=== PATIENT | male | born 1990 | race Caucasian/White ===

== ENCOUNTER 2023-10-31 12:50 | Outpatient (CLI) | payer OTHER, SELFPAY ==
--- NOTE | 2023-10-31 14:30 | NEURO_ITS ---
Impression: # Complains of numbness of hands/shoulders. Non-diabetic. # No Carpal Tunnel Syndrome. # No ulnar neuropathy. # Normal needle/EMG. # Clinical correlation recommended. Nerve Conduction Studies Anti Sensory Summary Table Stim Site NR Peak (ms) P-T Amp (?V) Site1 Site2 Delta-P (ms) Dist (cm) Umair (m/s) Left Median Anti Sensory (2-3nd Digit) Wrist 2.7 48.7 Wrist 2-3nd Digit 2.7 14.0 52 Wrist 2.8 47.7 Wrist 2-3nd Digit 2.7 14.0 52 Right Median Anti Sensory (2-3nd Digit) Wrist 2.8 62.6 Wrist 2-3nd Digit 2.8 14.0 50 Wrist 2.9 61.3 Wrist 2-3nd Digit 2.8 14.0 50 Left Radial Anti Sensory (Base 1st Digit) Wrist 2.1 36.2 Wrist Base 1st Digit 2.1 0.0 Right Radial Anti Sensory (Base 1st Digit) Wrist 2.3 30.3 Wrist Base 1st Digit 2.3 0.0 Left Ulnar Anti Sensory (5th Digit) Wrist 2.6 32.2 Wrist 5th Digit 2.6 14.0 54 Right Ulnar Anti Sensory (5th Digit) Wrist 2.5 71.9 Wrist 5th Digit 2.5 14.0 56 Motor Summary Table Stim Site NR Onset (ms) O-P Amp (mV) Site1 Site2 Delta-0 (ms) Dist (cm) Umair (m/s) Left Median Motor (Abd Poll Brev) Wrist 2.7 4.4 Elbow Wrist 5.2 32.0 62 Elbow 7.9 7.4 Right Median Motor (Abd Poll Brev) Wrist 3.1 2.6 Elbow Wrist 4.8 30.0 62 Elbow 7.9 4.6 Left Ulnar Motor (Abd Dig Minimi) Wrist 2.6 5.6 A Elbow Wrist 5.3 33.0 62 A Elbow 7.9 5.0 Right Ulnar Motor (Abd Dig Minimi) Wrist 2.4 7.9 A Elbow Wrist 5.3 32.0 60 A Elbow 7.7 7.3 F Wave Studies NR F-Lat (ms) L-R F-Lat (ms) Left Median (Mrkrs) (Abd Poll Brev) 27.78 0.57 Right Median (Mrkrs) (Abd Poll Brev) 27.21 0.57 Left Ulnar (Mrkrs) (Abd Dig Min) 27.39 0.25 Right Ulnar (Mrkrs) (Abd Dig Min) 27.63 0.25 EMG Side Muscle Nerve Root Ins Act Fibs Amp Dur Recrt Comment Right 1stDorInt Ulnar C8-T1 Nml Nml Nml Nml Nml Right Ext Indicis Radial (Post Int) C7-8 Nml Nml Nml Nml Nml Right Ext Digitorum Radial (Post Int) C7-8 Nml Nml Nml Nml Nml Right BrachioRad Radial C5-6 Nml Nml Nml Nml Nml Right PronatorTeres Median C6-7 Nml Nml Nml Nml Nml Right Abd Poll Brev Median C8-T1 Nml Nml Nml Nml Nml Right ABD Dig Min Ulnar C8-T1 Nml Nml Nml Nml Nml Left 1stDorInt Ulnar C8-T1 Nml Nml Nml Nml Nml Left Ext Indicis Radial (Post Int) C7-8 Nml Nml Nml Nml Nml Left Ext Digitorum Radial (Post Int) C7-8 Nml Nml Nml Nml Nml Left BrachioRad Radial C5-6 Nml Nml Nml Nml Nml Left PronatorTeres Median C6-7 Nml Nml Nml Nml Nml Left Abd Poll Brev Median C8-T1 Nml Nml Nml Nml Nml Left ABD Dig Min Ulnar C8-T1 Nml Nml Nml Nml Nml Right Biceps Musculocut C5-6 Nml Nml Nml Nml Nml Right Triceps Radial C6-7-8 Nml Nml Nml Nml Nml Right Deltoid Axillary C5-6 Nml Nml Nml Nml Nml Left Biceps Musculocut C5-6 Nml Nml Nml Nml Nml Left Triceps Radial C6-7-8 Nml Nml Nml Nml Nml Left Deltoid Axillary C5-6 Nml Nml Nml Nml Nml MTDD
== END 2023-10-31 12:51 | disposition home or self-care (01) ==
PROVIDERS: PCP Internal Medicine; Visit Provider Clinical Nurse Specialist
DX: R20.0 Anesthesia of skin (principal); R20.2 Paresthesia of skin
CPT/HCPCS: 95886; 95911

== ENCOUNTER 2023-12-26 15:00 | Outpatient (RCR) | payer OTHER, SELFPAY ==
--- NOTE | 2023-10-19 16:07 | OTOPEVAL1 ---
Assessment and note entered by Rolo Stewart, RYAN/Pilo, CHT Evaluation Information Assessment Status Evaluation Diagnosis Anesthesia of skin, Paresthesia of skin Subjective Information Patient reports experiencing bilateral shoulder pain and bilateral pinky tingling. States he experiences sensitivity when pushing through his palms. He reports right side is more severe than the left. He is right handed. 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 Reports no injury leading up to this. Reports no increase in symptoms at night. Reported Pain Level Pain Score 1: Self Report Assessment OT Clinical Summary Patient referred to OT with bilateral shoulder pain and bilateral small finger paresthesia. He presents with gross UE weakness, postural deviations, and reduced scapulothoracic and glenohumeral mobility. It appears he is experiencing proximal compression of the brachial plexus causing distal symptoms. Skilled OT indicated for postural exercise, gross strengthening, workstation ergonomics education to facilitate improved body mechanics and strength and reduce pain and nerve compression. Plan of Care Interventions Therapeutic Exercise,Manual Therapy,Neuro Re- education,Therapeutic Activities,Hot Pack/Cold Pack OT Services Indicated Yes Treatment Frequency and 1x/week for 5 visits Duration These treatments will address the objective and functional deficits as defined above. The patient will be advanced safely and appropriately in order for the patient to progress towards his/her prior level of function. Additional exercises will be introduced and as well as a comprehensive home exercise program upon discharge, if needed, ?to ensure carryover of functional gains achieved in the clinic. This treatment plan has been reviewed and agreement upon by the patient.
--- NOTE | 2023-10-19 16:07 | OPREHPOC ---
Outpatient Therapy Plan of Care This is a Multidisciplinary Plan of Care that may contain components documented by all disciplines (PT, OT, and ST.) OT Problem 1 OT Problem #1 Knowledge Deficit OT Goal 1 Goal 1. Patient to be independent with instructed materials. Target Visit 6 OT Problem 2 OT Problem #2 Impaired Balance OT Goal 1 Goal 1. Patient to report 0/10 shoulder pain bilaterally. Target Visit 6 OT Problem 3 OT Problem #3 Impaired Strength OT Goal 1 Goal 1. Patient to demonstrate improved functional posture as demonstrated by level shoulders when in a seated position. 2. Patient to demonstrate improved functional strength in bilateral shoulders to 4+/5. 3. Patient to improve periscapular muscle strength to 4+/5. Target Visit 6
--- NOTE | 2023-11-21 16:00 | OTOPPROG ---
Assessment and note entered by Rolo Stewart, RYAN/Pilo, ALTONT OT Progress Update 11/21/23 Assessment Status Progress Diagnosis Anesthesia of skin, Paresthesia of skin Subjective Information Patient has been compliant with strengthening and postural exercises. He reports experiencing no shoulder pain in the last week. Reports the hand tingling is very infrequent now. Reports he experienced 1 instance of pinky tingling this week when he was using a scraping tool to remove tape from a surface. At this time he reports the main issue is pain through the middle of his wrist now and some jolts of numbness through the carpal tunnel area. He continues to experience sensitivity when pushing through his palms. Assessment OT Clinical Summary Patient referred to OT with bilateral shoulder pain and bilateral hand paresthesia. He has made excellent progress with postural corrections and proximal strengthening. He no longer is experiencing tingling in his small fingers. He continues to report some residual wrist pain and upon further assessment he has a positive carpal compression and positive Phalen's on bilateral wrists indicative of carpal tunnel syndrome. Today he was instructed in purchasing bilateral wrist immobilizers to wear at night, nerve and tendon glide HEP, and instructed in contrast baths. Continued follow up indicated to continue to treat symptoms of bilateral carpal tunnel syndrome via modalities, manual therapy, therapeutic exercise, and HEP instruction and progression to reduce median nerve compression through the carpal tunnel . Plan of Care Interventions Therapeutic Exercise,Manual Therapy,Neuro Re- education,Therapeutic Activities,Hot Pack/Cold Pack,Check Out for Orthotic/Pr,Ultrasound,Paraffin OT Services Indicated Yes Treatment Frequency and 1x/week for 6 visits Duration These treatments will address the objective and functional deficits as defined above. The patient will be advanced safely and appropriately in order for the patient to progress towards his/her prior level of function. Additional exercises will be introduced and as well as a comprehensive home exercise program upon discharge, if needed, ?to ensure carryover of functional gains achieved in the clinic. This treatment plan has been reviewed and agreement upon by the patient.
--- NOTE | 2023-12-15 15:24 | PCOTNOTE ---
ADDENDUM NOTE DECEMBER 06 at 15:00 LATE ENTRY EDIT: Paraffin L hand and Paraffin R hand 135 degrees temperature for paraffin 5 layers Comment : decrease nerve compression, pain management Duration of 10 minutes for paraffin Ultrasound L wrist and Ultrasound R wrist Ultrasound Gel used Pulsed 20% intensity W/CM 1 8 minutes duration each side (16 minutes total) Comment: decrease pain, decrease nerve compression
--- NOTE | 2023-12-26 15:37 | OTOPDC ---
Assessment and note entered by Rolo Stewart, KIMBERLYR/Pilo, CHT OT Discharge Summary 12/26/23 Diagnosis Anesthesia of skin, Paresthesia of skin Subjective Information Patient's therapy has been focusing distally this past month, treating signs and symptoms of carpal tunnel syndrome. He is compliant with night splints. He reports his symptoms are decreasing, but that he continues to experience intermittent jolts of pain through the palms. Having less tenderness when weight bearing through the palms. He reports his right hand no longer experiences pain or numbness. Symptoms mildly persist on the left hand/wrist. Points to the ulnar side of the wrist. Reported Pain Level Pain Score 0: Self Report Additional Pain Score Comments Patient reports no pain at rest. Reports intermittent 2/10 volar wrist pain on the left. No issues on the right. Assessment OT Clinical Summary Everardo has participated in 10 weeks of therapy for bilateral shoulder pain and bilateral hand tingling. Therapy has focused a lot on postural education, strengthening, and body mechanics. For his distal symptoms, he has also been completing nerve glides, tendon glides, and hand strengthening. He has made excellent progress with therapy, no longer experiencing shoulder pain. He continues to have minimal and inconsistent left wrist pain, pointing to Guyon's canal/pisiform bone. 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 This appears to be exacerbating the pain ins the area as there are no proximal points where the ulnar nerve is irritated. Reviewed HEP today and he demonstrates excellent understanding. Recommending he continue to complete his HEP, continue strengthening, and continue his postural work for optimal results. He verbalizes excellent understanding. D/C OT with goals met. Plan of Care OT Services Indicated No
== END 2023-12-26 16:04 | disposition home or self-care (01) ==
LOC: ANHGOSHOT 15:00
PROVIDERS: PCP Internal Medicine; Visit Provider Clinical Nurse Specialist
DX: R20.0 Anesthesia of skin (principal); R20.2 Paresthesia of skin
CPT/HCPCS: 97018; 97035; 97110; 97166; 97530

== ENCOUNTER 2024-04-12 09:44 | Outpatient (CLI) | payer OTHER, SELFPAY ==
--- NOTE | ~2024-04-12 | XR_ITS ---
EXAMINATION: [id number] DATE: 04/12/2024 10:00 INDICATION: Neck pain. TECHNIQUE: 3 views of cervical spine were obtained. COMPARISON: None. FINDINGS: There is 15 degrees levoscoliosis of cervicothoracic spine. Vertebral body heights and inte rvertebral disc heights are normal. There is multilevel mild facet joint osteoarthritis. No central c anal stenosis or prevertebral soft tissue swelling. IMPRESSION: 1. Mild cervical facet joint osteoarthritis. 2. Cervicothoracic levoscoliosis. Reviewed, dictated and finalized at location A.
== END 2024-04-12 09:45 | disposition home or self-care (01) ==
PROVIDERS: PCP Internal Medicine; Visit Provider Clinical Nurse Specialist
DX: M50.30 Other cervical disc degeneration, unspecified cervical region (principal)
CPT/HCPCS: 72040